=== PATIENT | female | born 1985 | race African-American/Black ===

== ENCOUNTER 2018-03-21 20:12 | Inpatient (IN) | payer SELFPAY ==
[2018-03-21] MEDS ORDERED: SODIUM CHLORIDE 0.9% FLUSH 10 ML FLUSH IV FLUSH PRN (20:30)
[2018-03-21] MEDS ORDERED: KETOROLAC TROMETHAMINE 30 MG/ML (IVP) VIAL IVP ONE (20:30)
[2018-03-21] MEDS ORDERED: SODIUM CHLOR 0.9% 1000 ML INJ 1,000 ML IV SCH (20:30)
[2018-03-21 20:33] VITALS: BP 192/86; PULSE 119; RESP 16; TEMP 98.9; O2SAT 97
--- NOTE | 2018-03-21 20:41 | PD ---
HPI Chief Complaint: Abdominal Pain Time Seen by Provider: 20:17 Travel History International Travel<30 days: No Contact w/Intl Traveler<30days: No Traveled to known affect area: No History of Present Illness HPI 32-year-old female with history of MS presents emergency department for evaluation of lower abdominal pain. This is acute onset 2 days ago. Patient states the pain is cramping, sharp in nature. She states that her urine has had a stronger odor. She believes she may have a UTI. The pain does radiate to her back. She has been nauseous without vomiting. She reports subjective fever and chills. She denies any vaginal discharge. States she is currently on her menstrual cycle.. She denies any chance of . She has no other symptoms to report at this time. Of note, states that she was brought here by people and does not live locally. She has allegedly been abandoned by them. She has been without her MS medication for 2 days. PFS Past Medical History Musculoskeletal: Yes (MS) ?: Unknown Past Surgical History Surgical History: No Previous Surgery Social History Alcohol Use: No Tobacco Use: No Substance Use: No Allergies-Medications (Allergen,Severity, Reaction): Coded Allergies: Penicillins (Verified Allergy, Unknown, 03/21/18) Reported Meds & Prescriptions Reported Meds & Active Scripts Active Reported Prednisone 2.5 Mg Tab 2.5 Mg PO DAILY Review of Systems Except as stated in HPI: all other systems reviewed are Neg Physical Exam Narrative GENERAL: Well-nourished female patient, poorly kempt, but in no acute distress. SKIN: Focused skin assessment warm/dry. HEAD: Atraumatic. Normocephalic. EYES: Pupils equal and round. No scleral icterus. No injection or drainage. ENT: No nasal bleeding or discharge. Mucous membranes pink and moist. NECK: Trachea midline. No JVD. CARDIOVASCULAR: Tachycardic rate and rhythm. No murmur appreciated. RESPIRATORY: No accessory muscle use. Clear to auscultation. Breath sounds equal bilaterally. GASTROINTESTINAL: Abdomen soft, nondistended. Lower abdominal tenderness to palpation. Mild guarding. No rebound tenderness.. Hepatic and splenic margins not palpable. Pelvic: Patient refuses pelvic examination. Tells me she is on her menstrual cycle. MUSCULOSKELETAL: No obvious deformities. No clubbing. No cyanosis. No edema. NEUROLOGICAL: Awake and alert. No obvious cranial nerve deficits. Motor grossly within normal limits. Normal speech. PSYCHIATRIC: Appropriate mood and affect; insight and judgment normal. Data Data Last Documented VS Vital Signs Date Time Temp Pulse Resp B/P (MAP) Pulse Ox O2 Delivery O2 Flow Rate FiO2 03/21/18 20:33 98.9 119 16 192/86 (121) 97 Orders Orders Complete Blood Count With Diff (03/21/18 20:30) Comprehensive Metabolic Panel (03/21/18 20:30) Lipase (03/21/18 20:30) Prothrombin Time / Inr (Pt) (03/21/18 20:30) Act Partial Throm Time (Ptt) (03/21/18 20:30) Urinalysis - C+S If Indicated (03/21/18 20:30) Ct Abd/Pel W Iv Contrast(Rout) (03/21/18 20:30) Iv Access Insert/Monitor (03/21/18 20:30) Ecg Monitoring (03/21/18 20:30) Oximetry (03/21/18 20:30) Sodium Chlor 0.9% 1000 Ml Inj (Ns 1000 M (03/21/18 20:30) Sodium Chloride 0.9% Flush (Ns Flush) (03/21/18 20:30) Ketorolac Inj (Toradol Inj) (03/21/18 20:30) Ed Urine Pregnancytest Poc (03/21/18 20:30) Sodium Chlor 0.9% 1000 Ml Inj (Ns 1000 M (03/21/18 21:45) Iohexol 350 Inj (Omnipaque 350 Inj) (03/21/18 21:49) ^ Straight Catheter (03/21/18 21:58) Ceftriaxone Inj (Rocephin Inj) (03/21/18 23:00) Azithromycin (Zithromax) (03/21/18 23:00) Morphine Inj (Morphine Inj) (03/21/18 23:00) Consult General Surgery (03/21/18 ) Consult Abelardo Nfs (03/21/18 ) Ct Abd/Pel W Iv Contrast(Rout) (03/21/18 ) Lactic Acid Sepsis Protocol (03/21/18 23:08) Blood Culture (03/21/18 23:08) Admit Order (Ed Use Only) (03/21/18 23:08) Ns (Bolus) Inj (03/21/18 23:15) Labs Laboratory Tests Test 03/21/18 20:45 White Blood Count 15.1 TH/MM3 Red Blood Count 4.93 MIL/MM3 Hemoglobin 14.8 GM/DL Hematocrit 43.8 % Mean Corpuscular Volume 88.9 FL Mean Corpuscular Hemoglobin 30.0 PG Mean Corpuscular Hemoglobin Concent 33.7 % Red Cell Distribution Width 13.9 % Platelet Count 337 TH/MM3 Mean Platelet Volume 8.9 FL Neutrophils (%) (Auto) 84.4 % Lymphocytes (%) (Auto) 8.1 % Monocytes (%) (Auto) 7.2 % Eosinophils (%) (Auto) 0.0 % Basophils (%) (Auto) 0.3 % Neutrophils # (Auto) 12.7 TH/MM3 Lymphocytes # (Auto) 1.2 TH/MM3 Monocytes # (Auto) 1.1 TH/MM3 Eosinophils # (Auto) 0.0 TH/MM3 Basophils # (Auto) 0.0 TH/MM3 CBC Comment DIFF FINAL Differential Comment Prothrombin Time 10.3 SEC Prothromb Time International Ratio 1.0 RATIO Activated Partial Thromboplast Time 32.9 SEC Blood Urea Nitrogen 6 MG/DL Creatinine 0.80 MG/DL Random Glucose 96 MG/DL Total Protein 9.2 GM/DL Albumin 3.5 GM/DL Calcium Level 9.2 MG/DL Alkaline Phosphatase 88 U/L Aspartate Amino Transf (AST/SGOT) 38 U/L Alanine Aminotransferase (ALT/SGPT) 24 U/L Total Bilirubin 1.2 MG/DL Sodium Level 134 MEQ/L Potassium Level 5.0 MEQ/L Chloride Level 99 MEQ/L Carbon Dioxide Level 26.0 MEQ/L Anion Gap 9 MEQ/L Estimat Glomerular Filtration Rate 101 ML/MIN Lipase 64 U/L [facility] Medical Decision Making Medical Screen Exam Complete: Yes Emergency Medical Condition: Yes Medical Record Reviewed: Yes Differential Diagnosis Cystitis versus vaginitis versus urethritis versus colitis versus diverticulitis versus PID Narrative Course 32-year-old female presents emergency department for evaluation of lower abdominal pain. Patient appears overall well. She is tachycardic here in the emergency department. She is given IV fluid. Lab work and CT imaging are ordered. Patient refuses pelvic examination. Laboratory Tests Test 03/21/18 20:45 White Blood Count 15.1 TH/MM3 Red Blood Count 4.93 MIL/MM3 Hemoglobin 14.8 GM/DL Hematocrit 43.8 % Mean Corpuscular Volume 88.9 FL Mean Corpuscular Hemoglobin 30.0 PG Mean Corpuscular Hemoglobin Concent 33.7 % Red Cell Distribution Width 13.9 % Platelet Count 337 TH/MM3 Mean Platelet Volume 8.9 FL Neutrophils (%) (Auto) 84.4 % Lymphocytes (%) (Auto) 8.1 % Monocytes (%) (Auto) 7.2 % Eosinophils (%) (Auto) 0.0 % Basophils (%) (Auto) 0.3 % Neutrophils # (Auto) 12.7 TH/MM3 Lymphocytes # (Auto) 1.2 TH/MM3 Monocytes # (Auto) 1.1 TH/MM3 Eosinophils # (Auto) 0.0 TH/MM3 Basophils # (Auto) 0.0 TH/MM3 CBC Comment DIFF FINAL Differential Comment Prothrombin Time 10.3 SEC Prothromb Time International Ratio 1.0 RATIO Activated Partial Thromboplast Time 32.9 SEC Blood Urea Nitrogen 6 MG/DL Creatinine 0.80 MG/DL Random Glucose 96 MG/DL Total Protein 9.2 GM/DL Albumin 3.5 GM/DL Calcium Level 9.2 MG/DL Alkaline Phosphatase 88 U/L Aspartate Amino Transf (AST/SGOT) 38 U/L Alanine Aminotransferase (ALT/SGPT) 24 U/L Total Bilirubin 1.2 MG/DL Sodium Level 134 MEQ/L Potassium Level 5.0 MEQ/L Chloride Level 99 MEQ/L Carbon Dioxide Level 26.0 MEQ/L Anion Gap 9 MEQ/L Estimat Glomerular Filtration Rate 101 ML/MIN Lipase 64 U/L Last Impressions Abdomen/Pelvis CT 03/21/182029 Signed Impressions: CONCLUSION: Complex fluid collection in the pelvis as described above. Differential diagnos tic possibilities include ruptured appendicitis as well as tubo-ovarian abscess . Please see above. I discussed the case with Dr. Felix Pulido, general surgeon telephone recorder. He requests admission to medicine with a consult to surgery. He also recommends percutaneous drain be placed for likely tubo-ovarian abscess. [id number] Donahue who requests I speak to gynecology. I spoke with Dr. Beltre, [employer] hospitalist on-call. She will come in and evaluate the patient in consult on the patient, however she feels that medical admission is in the patient's best interest due to history of MS. another call was placed to Dr. Donahue [phone] Donahue who states that she will be more than happy to consult on the patient if indeed they are needed for her MS, however she feels this is a more appropriate gynecology or surgery admission. I then spoke with Dr. Beltre. Patient will be admitted to her service.. She requests that I hold off on any further antibiotics at this time until she assesses the patient. she will be down in the emergency room shortly to do so. Diagnosis Primary Impression: Abdominal pain Qualified Codes: R10.30 - Lower abdominal pain, unspecified Additional Impression: Pelvic fluid collection Admitting Information Admitting Physician Requests: Admit Condition: Stable Kecia Tobin Mar 21, 2018 20:41
[2018-03-21] MEDS ORDERED: PRED2.5T PO (20:50)
[2018-03-21 20:59] LABS: AUTOMATED NEUTROPHIL # 12.7 TH/MM3 (1.8-7.7); BASOPHIL % 0.3 % (0.0-2.0); HEMATOCRIT 43.8 % (35.0-46.0); HEMOGLOBIN 14.8 GM/DL (11.6-15.3); LYMPH % 8.1 % (9.0-44.0); LYMPHOCYTE # 1.2 TH/MM3 (1.0-4.8); MEAN CELL VOLUME 88.9 FL (80.0-100.0); MEAN CORPUSCULAR HGB CONC 33.7 % (32.0-36.0); MEAN PLATELET VOLUME 8.9 FL (7.0-11.0); MONO % 7.2 % (0.0-8.0); MONOCYTE # 1.1 TH/MM3 (0-0.9); NEUT % 84.4 % (16.0-70.0); PLATELET COUNT 337 TH/MM3 (150-450); RED BLOOD COUNT 4.93 MIL/MM3 (4.00-5.30); RED CELL DISTRIBUTION WIDTH 13.9 % (11.6-17.2); WHITE BLOOD COUNT 15.1 TH/MM3 (4.0-11.0)
[2018-03-21 21:23] LABS: PROTHROMBIN TIME - PATIENT 10.3 SEC (9.8-11.6)
[2018-03-21 21:37] LABS: ALKALINE PHOSPHATASE 88 U/L (45-117); ALT (GPT) 24 U/L (10-53); TOTAL BILIRUBIN ADULT 1.2 MG/DL (0.2-1.0); TOTAL PROTEIN 9.2 GM/DL (6.4-8.2)
[2018-03-21] MEDS ORDERED: SODIUM CHLOR 0.9% 1000 ML INJ 1,000 ML IV ONE ×2 (21:45→23:15)
[2018-03-21] MEDS ORDERED: IOHEXOL 350 MG/ML 10 ML VIAL (for RAD DIAG) IVCONTRAST ONE (21:49)
[2018-03-21 21:58] LABS: ALBUMIN 3.5 GM/DL (3.4-5.0); AST (GOT) 38 U/L (15-37); BLOOD UREA NITROGEN 6 MG/DL (7-18); CALCIUM 9.2 MG/DL (8.5-10.1); CHLORIDE 99 MEQ/L (98-107); GLOMERULAR FILTRATION RATE 101 ML/MIN (>89); GLUCOSE,RANDOM 96 MG/DL (74-106); SODIUM (NA) 134 MEQ/L (136-145)
--- NOTE | 2018-03-21 22:37 | RADRPT ---
EXAM DATE: 03/21/2018 9:56 PM EDT AGE/SEX: 32 years / Female INDICATIONS: Abdomen pain. CLINICAL DATA: This is the patient's initial encounter. Patient reports that signs and symptoms have been present for 1 day and indicates a pain score of 5/10. MEDICAL/SURGICAL HISTORY: None. None. ORAL CONTRAST: No oral contrast ingested. RADIATION DOSE: 5.61 CTDI (mGy) COMPARISON: No prior exams available for comparison. TECHNIQUE: Multiple contiguous axial images were obtained through the abdomen and pelvis following b olus infusion of 90 ml Omnipaque 350 (iohexol) nonionic water-soluble contrast as a single exam dos e. No oral contrast ingested. Using automated exposure control and adjustment of the mA and/or kV ac cording to patient size, radiation dose was kept as low as reasonably achievable to obtain optimal di agnostic quality images. DICOM format image data is available electronically for review and comparis on. FINDINGS: Examination of the lung bases demonstrates no abnormality. No pleural fluid is identified. No pulmona ry nodules are present. The liver and spleen are normal in size and no focal defects are identified. There are multiple gallstones within the gallbladder without wall thickening or pericholecystic flui d the largest measuring 5 mm The pancreas demonstrates no evidence of mass and there is no dilatation of the pancreatic duct. The adrenal glands and kidneys appear normal bilaterally. No hydronephrosis or mass lesions are identified. In the pelvis there is a multilocular fluid collection on the right extending into the deep pelvis me asuring in aggregate 7.5 x 3.6 cm. The cecum does extend low into the pelvis though no appendix is id entified. The lack of oral contrast limits the evaluation of this examination and this could be consi dered to narrow the differential diagnosis of tubo-ovarian abscess versus appendicitis. The bladder a ppears normal. No wall thickening or intraluminal masses are identified. No abnormally enlarged lymph nodes are identified. CONCLUSION: Complex fluid collection in the pelvis as described above. Differential diagnostic possibilities incl ude ruptured appendicitis as well as tubo-ovarian abscess. Please see above. Electronically signed by: Jesse Ge MD 03/21/2018 10:36 PM EDT
[2018-03-21] MEDS ORDERED: cefTRIAXone 250 MG VIAL IM ONE (23:00)
[2018-03-21] MEDS ORDERED: AZITHROMYCIN 250 MG TAB PO ONE (23:00)
[2018-03-21] MEDS ORDERED: MORPHINE SULFATE 4 MG/ML INJ IV PUSH ONE (23:00)
[2018-03-21] MEDS ORDERED: DIATRIZOATE MEGLUM/DIATRIZOATE SOD 9 ML CUP PO ONE (23:30)
[2018-03-22] VITALS (8 sets, daily range): BP systolic 116–138; BP diastolic 61–87; PULSE 89–107; RESP 15–20; TEMP 98–100.4; O2SAT 96–100
[2018-03-22] MEDS ORDERED: ONDANSETRON ODT 4 MG TAB PO PRN (00:30)
[2018-03-22] MEDS ORDERED: ACETAMINOPHEN 325 MG TAB PO PRN (00:30)
[2018-03-22] MEDS ORDERED: SODIUM CHLORIDE 0.9% FLUSH 10 ML FLUSH IV FLUSH PRN (00:30)
--- NOTE | 2018-03-22 01:04 | HHI.HP ---
HPI Chief Complaint pelvic pain Date Seen: Mar 22, 2018 Time Seen: 00:30 Travel History International Travel<30 Days: No Contact w/Intl Traveler<30Days: No Known Affected Area: No History of Present Illness HPI 32 yo presents with LMP of 6 c/o of 2 day hx of pelvic pain and cramping that started with onset of her menses. pt states she has never had pain like this before. pain is worse with moving and walking. she has not taken pain meds. c/o pain with urination. +fever and chills. she hasn't taken her temperature. she is stranded here in [place] and is trying to get home to [place]. 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 SKIN: Warm and dry. HEAD: Normocephalic and atraumatic. EYES: No scleral icterus. No injection or drainage. ENT: No nasal drainage noted. Mucous membranes pink. Airway patent. NECK: Supple, trachea midline. No JVD. CARDIOVASCULAR: Regular rate and rhythm without murmurs, gallops, or rubs. RESPIRATORY: Breath sounds equal bilaterally. No accessory muscle use. BREASTS: Bilateral exam showed no masses , no retractions, no nipple discharge. ABDOMEN/GI: Abdomen soft, non-tender, bowel sounds present, no rebound, no guarding External Genitalia: intact and normal in appearance Cervix: +malodorous vaginal discharge + CMT EXTREMITIES: No cyanosis or edema. BACK: Nontender without obvious deformity. No CVA tenderness. NEUROLOGICAL: Awake and alert. Motor and sensory grossly within normal limits. Five out of 5 muscle strength in all muscle groups. Normal speech. Caprini VTE Risk Assessment Caprini VTE Risk Assessment: No/Low Risk (score <= 1) Caprini Risk Assessment Model Point Value = 1 Point Value = 2 Point Value = 3 Point Value = 5 Age 41-60 Minor surgery BMI > 25 kg/m2 Swollen legs Varicose veins or History of unexplained or recurrent spontaneous Oral contraceptives or hormone replacement Sepsis (< 1 month) Serious lung disease, including pneumonia (< 1 month) Abnormal pulmonary function Acute myocardial infarction Congestive heart failure (< 1 month) History of inflammatory bowel disease Medical patient at bed rest Age 61-74 Arthroscopic surgery Major open surgery (> 45 min) Laparoscopic surgery (> 45 min) Malignancy Confined to bed (> 72 hours) Immobilizing plaster cast Central venous access Age >= 75 History of VTE Family history of VTE Factor V Leiden Prothrombin [id number] Lupus anticoagulant Anticardiolipin antibodies Elevated serum homocysteine Heparin-induced thrombocytopenia Other congenital or acquired thrombophilia Stroke (< 1 month) Elective arthroplasty Hip, pelvis, or leg fracture Acute spinal cord injury (< 1 month) Prophylaxis Regimen Total Risk Factor Score Risk Level Prophylaxis Regimen 0-1 Low Early ambulation 2 Moderate Order ONE of the following: *Sequential Compression Device (SCD) *Heparin 5000 units SQ BID 3-4 Higher Order ONE of the following medications: *Heparin 5000 units SQ TID *Enoxaparin/Lovenox 40 mg SQ daily (WT < 150 kg, CrCl > 30 mL/min) *Enoxaparin/Lovenox 30 mg SQ daily (WT < 150 kg, CrCl > 10-29 mL/min) *Enoxaparin/Lovenox 30 mg SQ BID (WT < 150 kg, CrCl > 30 mL/min) AND/OR *Sequential Compression Device (SCD) 5 or more Highest Order ONE of the following medications: *Heparin 5000 units SQ TID (Preferred with Epidurals) *Enoxaparin/Lovenox 40 mg SQ daily (WT < 150 kg, CrCl > 30 mL/min) *Enoxaparin/Lovenox 30 mg SQ daily (WT < 150 kg, CrCl > 10-29 mL/min) *Enoxaparin/Lovenox 30 mg SQ BID (WT < 150 kg, CrCl > 30 mL/min) AND *Sequential Compression Device (SCD) Data Data Vital Signs Reviewed: Yes Orders Orders Complete Blood Count With Diff (03/21/18 20:30) Comprehensive Metabolic Panel (03/21/18 20:30) Lipase (03/21/18 20:30) Prothrombin Time / Inr (Pt) (03/21/18 20:30) Act Partial Throm Time (Ptt) (03/21/18 20:30) Urinalysis - C+S If Indicated (03/21/18 20:30) Ct Abd/Pel W Iv Contrast(Rout) (03/21/18 20:30) Iv Access Insert/Monitor (03/21/18 20:30) Ecg Monitoring (03/21/18 20:30) Oximetry (03/21/18 20:30) Sodium Chlor 0.9% 1000 Ml Inj (Ns 1000 M (03/21/18 20:30) Sodium Chloride 0.9% Flush (Ns Flush) (03/21/18 20:30) Ketorolac Inj (Toradol Inj) (03/21/18 20:30) Ed Urine Pregnancytest Poc (03/21/18 20:30) Sodium Chlor 0.9% 1000 Ml Inj (Ns 1000 M (03/21/18 21:45) Iohexol 350 Inj (Omnipaque 350 Inj) (03/21/18 21:49) ^ Straight Catheter (03/21/18 21:58) Ceftriaxone Inj (Rocephin Inj) (03/21/18 23:00) Azithromycin (Zithromax) (03/21/18 23:00) Morphine Inj (Morphine Inj) (03/21/18 23:00) Consult General Surgery (03/21/18 ) Consult Abelardo Nfs (03/21/18 ) Lactic Acid Sepsis Protocol (03/21/18 23:08) Blood Culture (03/21/18 23:08) Admit Order (Ed Use Only) (03/21/18 23:08) Sodium Chlor 0.9% 1000 Ml Inj (Ns 1000 M (03/21/18 23:15) Oral Contrast - Adult (03/21/18 23:26) Diatrizoate Sharmaine (Md Sandra Schmid) (03/21/18 23:30) Admit To Inpatient (03/22/18 ) Vital Signs (Adult) Q4H (03/22/18 00:19) Activity Oob Ad Sonia (03/22/18 ) Diet Regular Basic (03/22/18 Breakfast) Sodium Chlor 0.45% 1000 Ml Inj (1/2 Ns 1 (03/22/18 00:19) Sodium Chloride 0.9% Flush (Ns Flush) (03/22/18 00:30) Sodium Chloride 0.9% Flush (Ns Flush) (03/22/18 09:00) Doxycycline Inj (Vibramycin Inj) (03/22/18 03:00) Cefoxitin Inj (Mefoxin Inj) (03/22/18 02:30) Acetaminophen (Tylenol) (03/22/18 00:30) Ibuprofen (Motrin) (03/22/18 00:30) Ketorolac Inj (Toradol Inj) (03/22/18 00:30) Morphine Inj (Morphine Inj) (03/22/18 00:30) Ondansetron Odt (Zofran Odt) (03/22/18 00:30) Complete Blood Count With Diff (03/23/18 06:00) Wet Prep Profile (03/22/18 00:19) Gc And Chlamydia Pcr (03/22/18 00:19) Us Pelvis Comp Grinder Operator Automatic/Non-Preg (03/22/18 ) Vte Prophylaxis Not Indicated (03/22/18 00:19) Inpatient Certification (03/22/18 ) Case Management Consult (03/22/18 ) Complete Blood Count With Diff (03/22/18 06:00) Ct Abd/Pel W Iv Contrast(Rout) (03/22/18 ) Labs Last 24 hours Impressions Abdomen/Pelvis CT 03/21/18 2030 Signed Impressions: CONCLUSION: Complex fluid collection in the pelvis as described above. Differential diagnos tic possibilities include ruptured appendicitis as well as tubo-ovarian abscess . Please see above. Laboratory Tests Test 03/21/18 20:45 03/21/18 23:40 03/22/18 00:35 White Blood Count 15.1 Red Blood Count 4.93 Hemoglobin 14.8 Hematocrit 43.8 Mean Corpuscular Volume 88.9 Mean Corpuscular Hemoglobin 30.0 Mean Corpuscular Hemoglobin Concent 33.7 Red Cell Distribution Width 13.9 Platelet Count 337 Mean Platelet Volume 8.9 Neutrophils (%) (Auto) 84.4 Lymphocytes (%) (Auto) 8.1 Monocytes (%) (Auto) 7.2 Eosinophils (%) (Auto) 0.0 Basophils (%) (Auto) 0.3 Neutrophils # (Auto) 12.7 Lymphocytes # (Auto) 1.2 Monocytes # (Auto) 1.1 Eosinophils # (Auto) 0.0 Basophils # (Auto) 0.0 CBC Comment DIFF FINAL Differential Comment Prothrombin Time 10.3 Prothromb Time International Ratio 1.0 Activated Partial Thromboplast Time 32.9 Blood Urea Nitrogen 6 Creatinine 0.80 Random Glucose 96 Total Protein 9.2 Albumin 3.5 Calcium Level 9.2 Alkaline Phosphatase 88 Aspartate Amino Transf (AST/SGOT) 38 Alanine Aminotransferase (ALT/SGPT) 24 Total Bilirubin 1.2 Sodium Level 134 Potassium Level 5.0 Chloride Level 99 Carbon Dioxide Level 26.0 Anion Gap 9 Estimat Glomerular Filtration Rate 101 Lipase 64 Lactic Acid Level 1.1 Date/Time Source Procedure Growth Status 03/21/18 23:40 Blood Peripheral Aerobic Blood Culture Pending Received 03/21/18 23:40 Blood Peripheral Anaerobic Blood Culture Pending Received Assessment/Plan Problem List: (1) Tubo-ovarian abscess ICD Codes: N70.93 - Salpingitis and oophoritis, unspecified Status: Acute Plan: admit start antibiotics check pelvic u/s gc/ct collected (2) Abdominal pain ICD Codes: R10.9 - Unspecified abdominal pain Status: Acute Qualifiers: Qualified Codes: R10.30 - Lower abdominal pain, unspecified (3) Pelvic fluid collection ICD Codes: R18.8 - Other ascites Status: Acute Plan: consult interventional radiology for possible CT guided drainage in Behzad Webb MD Mar 22, 2018 01:04
[2018-03-22] MEDS ORDERED: ceFOXitin INJ 2,000 GM in SODIUM CHLORIDE 0.9% INJ 100 ML IV SCH ×2 (02:30→10:00)
[2018-03-22] MEDS ORDERED: DOXYCYCLINE INJ 100 MG in SODIUM CHLORIDE 0.9% INJ 100 ML IV SCH (03:00)
[2018-03-22] MEDS: SODIUM CHLOR 0.45% 1000 ML INJ 1,000 ML IV SCH ×3 (03:30→16:37)
[2018-03-22 04:46] LABS: BILIRUBIN, URINE NEG (NEG); BLOOD, URINE LARGE (NEG); GLUCOSE,URINE NEG (NEG); KETONE, URINE 20 mg/dL (NEG); NITRITE,URINE NEG (NEG); SQUAMOUS EPITHELIAL CELL URINE 1 /hpf (0-5); URINE COLOR YELLOW (YELLW/STRAW); URINE LEUKOCYTE ESTERASE NEG (NEG)
[2018-03-22] MEDS ORDERED: IOHEXOL 350 MG/ML 10 ML VIAL (for RAD DIAG) IVCONTRAST ONE (06:12)
--- NOTE | 2018-03-22 06:28 | RADRPT ---
EXAM DATE: 03/22/2018 6:16 AM EDT AGE/SEX: 32 years / Female INDICATIONS: Right sided abdominal pain; possible appendicitis. CLINICAL DATA: This is the patient's subsequent encounter. Patient reports that signs and symptoms h ave been present for 1 day and indicates a pain score of 5/10. MEDICAL/SURGICAL HISTORY: None. None. ORAL CONTRAST: Prescribed oral contrast ingested. RADIATION DOSE: 6.64 CTDI (mGy) [place] [facility] [place]AST, 03/21/2018. . TECHNIQUE: Multiple contiguous axial images were obtained through the abdomen and pelvis following b olus infusion of 50 ml Omnipaque 350 (iohexol) nonionic water-soluble contrast as a single exam dos e. Prescribed oral contrast ingested. Using automated exposure control and adjustment of the mA and/ or kV according to patient size, radiation dose was kept as low as reasonably achievable to obtain op timal diagnostic quality images. DICOM format image data is available electronically for review and comparison. FINDINGS: Lower Lungs: The visualized lower lungs are clear. Liver: The liver has a homogeneous density without space-occupying lesion. Calcified gallstones. Ther e is no dilation of the biliary tree. Spleen: Homogeneous density without enlargement. Pancreas: Unremarkable without mass or calcification. Kidneys: Normal in size and shape. No evidence of mass or hydronephrosis. Adrenal Glands: Unremarkable. Aorta: The aorta and proximal iliac vessels are grossly unremarkable without aneurysmal dilation. Bowel/Mesentery: The bowel loops are grossly unremarkable. The cecum and sigmoid colon have a normal configuration. Appendix is normal. Abdominal Wall: Intact. Retroperitoneum: No evidence of adenopathy in the retrocrural, para-aortic, or deep pelvic regions. Bladder: Contours are smooth. Reproductive Organs: Prominent cystic structure in the right adnexa measures 3.9 x 2.4 cm. More post eriorly adjacent to the rectum is a cystic structure measuring 3.7 x 3.4 cm. Several other loculated cystic structures are again seen. Inguinal: The inguinal region is unremarkable without evidence of adenopathy. Bony Structures: Unremarkable. CONCLUSION: 1. Loculated cystic structures in the right adnexa/right posterior pelvis possibly related to PID/TO A/hydrosalpinx. Pelvic sonogram recommended. 2. Appendix is normal. 3. Cholelithiasis. Electronically signed by: Mukund Mercer MD 03/22/2018 6:27 AM EDT
[2018-03-22] MEDS: SODIUM CHLORIDE 0.9% FLUSH 10 ML FLUSH IV FLUSH SCH ×2 (07:30→20:44)
[2018-03-22] MEDS: MORPHINE SULFATE 4 MG/ML INJ IV PUSH PRN ×4 (07:37→21:40)
--- NOTE | 2018-03-22 09:22 | RADRPT ---
EXAM DATE: 03/22/2018 9:03 AM EDT AGE/SEX: 32 years / Female INDICATIONS: Pelvic pain. CLINICAL DATA: This is the patient's initial encounter. Patient reports that signs and symptoms have been present for 3 days and indicates a pain score of 10/10. MEDICAL/SURGICAL HISTORY: . Multiple sclerosis. None. COMPARISON: [facility] – [place], [place] ABDOMEN & PELVIS W CONTRAST, 03/22/2018. . No external comparison. MEASUREMENTS: Uterus:__9.1 x 3.8 x 4.9 cm Endometrial Stripe:__3 mm Right Ovary:__ Ovary not identified Not visualized. Left Ovary:__ 3.6 x 1.9 x 2.4 cm FINDINGS: Uterus: The myometrium has homogeneous echotexture without mass. Endometrial Stripe: The endometrial stripe displays homogeneous echotexture. Right Ovary: Normal right ovary not seen. Tubular structure with debris in the right adnexa as seen on previous CT scans. Left Ovary: Ovary contains no mass. Follicles are present. Fluid: There is free fluid in the right adnexa Other: None. CONCLUSION: 1. Complex tubular cystic structure right adnexa with debris likely hydrosalpinx/pelvic inflammatory disease. 2. Left ovary and uterus unremarkable. Electronically signed by: Mukund Mercer MD 03/22/2018 9:21 AM EDT
--- NOTE | 2018-03-22 09:25 | PD.CONS ---
History of Present Illness Service OBGYN Consult Requested By Reason for Consult TOA Primary Care Physician No Primary Care Physician Diagnoses: (1) Tubo-ovarian abscess (2) Abdominal pain (3) Pelvic fluid collection History of Present Illness No acute events overnight. Patient reports that her pain is well controlled with pain medication. She denies fevers. She reports chills overnight. She reports that her abdomen is quill machine tender. Past Family Social History Allergies: Coded Allergies: Penicillins (Verified Allergy, Unknown, 03/21/18) Physical Exam Vital Signs Vital Signs Date Time Temp Pulse Resp B/P (MAP) Pulse Ox O2 Delivery O2 Flow Rate FiO2 03/22/18 08:00 98.0 101 18 120/71 (87) 97 03/22/18 07:42 17 03/22/18 07:31 98.1 102 18 125/68 (87) 97 Room Air 03/22/18 04:39 107 16 116/66 (83) 99 Room Air 03/22/18 00:32 96 18 117/61 (79) 96 Room Air 03/21/18 20:33 98.9 119 16 192/86 (121) 97 Physical Exam GENERAL: This is a well-nourished, well-developed patient, in no apparent distress. SKIN: No rashes, ecchymoses or lesions. Cool and dry. HEAD: Atraumatic. Normocephalic. No temporal or scalp tenderness. EYES: Pupils equal round and reactive. Extraocular motions intact. No scleral icterus. No injection or drainage. ENT: Nose without bleeding, purulent drainage or septal hematoma. Throat without erythema, tonsillar hypertrophy or exudate. Uvula midline. Airway patent. NECK: Trachea midline. No JVD or lymphadenopathy. Supple, nontender, no meningeal signs. CARDIOVASCULAR: Regular rate and rhythm without murmurs, gallops, or rubs. RESPIRATORY: Clear to auscultation. Breath sounds equal bilaterally. No wheezes , rales, or rhonchi. GASTROINTESTINAL: Abdomen soft, non-tender, nondistended. No hepato-splenomegaly , or palpable masses. No guarding. MUSCULOSKELETAL: Extremities without clubbing, cyanosis, or edema. No joint tenderness, effusion, or edema noted. No calf tenderness. Negative Homans sign bilaterally. NEUROLOGICAL: Awake and alert. Cranial nerves II through XII intact. Motor and sensory grossly within normal limits. Five out of 5 muscle strength in all muscle groups. Normal speech. Laboratory Laboratory Tests Test 03/21/18 20:45 03/21/18 23:40 03/22/18 00:35 03/22/18 04:00 White Blood Count 15.1 Red Blood Count 4.93 Hemoglobin 14.8 Hematocrit 43.8 Mean Corpuscular Volume 88.9 Mean Corpuscular Hemoglobin 30.0 Mean Corpuscular Hemoglobin Concent 33.7 Red Cell Distribution Width 13.9 Platelet Count 337 Mean Platelet Volume 8.9 Neutrophils (%) (Auto) 84.4 Lymphocytes (%) (Auto) 8.1 Monocytes (%) (Auto) 7.2 Eosinophils (%) (Auto) 0.0 Basophils (%) (Auto) 0.3 Neutrophils # (Auto) 12.7 Lymphocytes # (Auto) 1.2 Monocytes # (Auto) 1.1 Eosinophils # (Auto) 0.0 Basophils # (Auto) 0.0 CBC Comment DIFF FINAL Differential Comment Prothrombin Time 10.3 Prothromb Time International Ratio 1.0 Activated Partial Thromboplast Time 32.9 Blood Urea Nitrogen 6 Creatinine 0.80 Random Glucose 96 Total Protein 9.2 Albumin 3.5 Calcium Level 9.2 Alkaline Phosphatase 88 Aspartate Amino Transf (AST/SGOT) 38 Alanine Aminotransferase (ALT/SGPT) 24 Total Bilirubin 1.2 Sodium Level 134 Potassium Level 5.0 Chloride Level 99 Carbon Dioxide Level 26.0 Anion Gap 9 Estimat Glomerular Filtration Rate 101 Lipase 64 Human Chorionic Gonadotropin, Quant LESS THAN 1 Lactic Acid Level 1.1 Clue Cells (Wet Prep) PRESENT Vaginal Trichomonas (Wet Prep) NONE SEEN Vaginal Yeast (Wet Prep) NONE SEEN Chlamydia trachomatis DNA (PCR) NOT DETECTED Neisseria gonorrhoeae DNA (PCR) NOT DETECTED Urine Color YELLOW Urine Turbidity HAZY Urine pH 6.0 Urine Specific [place] 1.033 Urine Protein NEG Urine Glucose (UA) NEG Urine Ketones 20 Urine Occult Blood LARGE Urine Nitrite NEG Urine Bilirubin NEG Urine Urobilinogen LESS THAN 2 Urine Leukocyte Esterase NEG Urine RBC 6 Urine WBC 8 Urine Squamous Epithelial Cells 1 Microscopic Urinalysis Comment CULT NOT INDICATED Date/Time Source Procedure Growth Status 03/21/18 23:40 Blood Peripheral Aerobic Blood Culture Pending Received 03/21/18 23:40 Blood Peripheral Anaerobic Blood Culture Pending Received Result Diagram: 03/21/18204403/21/182044 Problem Qualifiers (1) Abdominal pain: Qualified Codes: R10.30 - Lower abdominal pain, unspecified Shadi Ramos MD R2 Mar 22, 2018 09:25
--- NOTE | 2018-03-22 09:31 | HHI.PR ---
Subjective Remarks No acute events overnight. Patient reports that her pain is well controlled with pain medication. She denies fevers. She reports chills overnight. She reports that her abdomen is slab off mill tender. (Shadi Ramos MD R2) Objective - Vital Signs Date Time Temp Pulse Resp B/P (MAP) Pulse Ox O2 Delivery O2 Flow Rate FiO2 03/22/18 08:00 98.0 101 18 120/71 (87) 97 03/22/18 07:31 Room Air (Shadi Ramos MD R2) Result Diagram: 03/21/18204403/21/182044 Objective Remarks GENERAL: Well-nourished, well-developed patient. SKIN: Warm and dry. HEAD: Normocephalic and atraumatic. EYES: No scleral icterus. No injection or drainage. ENT: No nasal drainage noted. Mucous membranes pink. Airway patent. NECK: Supple, trachea midline. No JVD. CARDIOVASCULAR: Regular rate and rhythm without murmurs, gallops, or rubs. RESPIRATORY: Breath sounds equal bilaterally. No accessory muscle use. BREASTS: Bilateral exam showed no masses , no retractions, no nipple discharge. ABDOMEN/GI: Abdomen soft, tender to palpation suprapubic region, bowel sounds present, no rebound, no guarding EXTREMITIES: No cyanosis or edema. BACK: Nontender without obvious deformity. NEUROLOGICAL: Awake and alert. Motor and sensory grossly within normal limits. Five out of 5 muscle strength in all muscle groups. Normal speech. (Shadi Ramos MD R2) A/P Problem List: (1) Tubo-ovarian abscess ICD Code: N70.93 - Salpingitis and oophoritis, unspecified Status: Acute (2) Abdominal pain ICD Code: R10.9 - Unspecified abdominal pain Status: Acute (3) Pelvic fluid collection ICD Code: R18.8 - Other ascites Status: Acute Assessment and Plan 1. likely TOA -start antibiotics to treat TOA. Plan to treat for 10-14 days. -Cefoxitin 2 g IV every 6 hours -Doxycycline 100 mg IV every 12 hours -check pelvic u/s -gc/ct negative -Cancelled general surgery consult -Interventional radiology consulted -Trend CBC: Shows leukocytosis with WBC of 15, left shift 2. Also found to have BV with clue cells on wet prep -Metronidazole 500 mg p.o. every 12 hours for 7 days -Can switch above antibiotics to Levaquin and Flagyl if desired 3. homelessness -Case management consulted for complex social situation (Shadi Ramos MD R2) Attending Attestation pt seen and examined with resident. agree with plan. (Behzad Beltre MD) Problem Qualifiers (1) Abdominal pain: Qualified Codes: R10.30 - Lower abdominal pain, unspecified Shadi Ramos MD R2 Mar 22, 2018 09:31 Behzad Beltre MD Mar 23, 2018 13:27
[2018-03-22] MEDS: metroNIDAZOLE 500 MG TAB PO SCH ×2 (10:25→20:43)
[2018-03-22] MEDS: KETOROLAC TROMETHAMINE 30 MG/ML (IVP) VIAL IV PUSH PRN (10:26)
[2018-03-22] MEDS: ceFOXitin INJ 2,000 GM in SODIUM CHLORIDE 0.9% INJ 100 ML IV SCH ×3 (10:42→20:44)
[2018-03-22 12:13] LABS: AUTOMATED NEUTROPHIL # 8.1 TH/MM3 (1.8-7.7); BASOPHIL % 0.4 % (0.0-2.0); EOSINOPHIL % 0.2 % (0.0-4.0); HEMOGLOBIN 10.3 GM/DL (11.6-15.3); LYMPH % 10.3 % (9.0-44.0); MEAN CELL VOLUME 89.3 FL (80.0-100.0); MEAN CORPUSCULAR HEMOGLOBIN 29.7 PG (27.0-34.0); MEAN CORPUSCULAR HGB CONC 33.3 % (32.0-36.0); MEAN PLATELET VOLUME 8.7 FL (7.0-11.0); MONO % 9.9 % (0.0-8.0); NEUT % 79.2 % (16.0-70.0); PLATELET COUNT 247 TH/MM3 (150-450); RED BLOOD COUNT 3.48 MIL/MM3 (4.00-5.30); RED CELL DISTRIBUTION WIDTH 13.5 % (11.6-17.2); WHITE BLOOD COUNT 10.2 TH/MM3 (4.0-11.0)
[2018-03-22] MEDS: DOXYCYCLINE INJ 100 MG in SODIUM CHLORIDE 0.9% INJ 100 ML IV SCH (16:37)
[2018-03-23] VITALS: BP 115/63; PULSE 95; RESP 18; TEMP 98.5; O2SAT 97
[2018-03-23] MEDS: DOXYCYCLINE INJ 100 MG in SODIUM CHLORIDE 0.9% INJ 100 ML IV SCH ×2 (03:53→15:00)
[2018-03-23] MEDS: ceFOXitin INJ 2,000 GM in SODIUM CHLORIDE 0.9% INJ 100 ML IV SCH ×3 (03:53→16:23)
[2018-03-23 04:00] VITALS: BP 117/94; PULSE 97; RESP 24; TEMP 98.6; O2SAT 100
[2018-03-23 05:16] LABS: AUTOMATED NEUTROPHIL # 6.3 TH/MM3 (1.8-7.7); BASOPHIL % 0.6 % (0.0-2.0); EOSINOPHIL % 0.6 % (0.0-4.0); HEMATOCRIT 33.7 % (35.0-46.0); HEMOGLOBIN 11.3 GM/DL (11.6-15.3); LYMPH % 8.6 % (9.0-44.0); LYMPHOCYTE # 0.7 TH/MM3 (1.0-4.8); MEAN CORPUSCULAR HEMOGLOBIN 29.8 PG (27.0-34.0); MEAN CORPUSCULAR HGB CONC 33.5 % (32.0-36.0); MEAN PLATELET VOLUME 8.1 FL (7.0-11.0); MONO % 11.7 % (0.0-8.0); MONOCYTE # 0.9 TH/MM3 (0-0.9); NEUT % 78.5 % (16.0-70.0); PLATELET COUNT 249 TH/MM3 (150-450); RED BLOOD COUNT 3.79 MIL/MM3 (4.00-5.30); RED CELL DISTRIBUTION WIDTH 13.6 % (11.6-17.2)
[2018-03-23] MEDS: MORPHINE SULFATE 4 MG/ML INJ IV PUSH PRN (05:19)
[2018-03-23] MEDS: SODIUM CHLOR 0.45% 1000 ML INJ 1,000 ML IV SCH ×2 (06:19→15:00)
[2018-03-23 08:00] VITALS: BP 131/81; PULSE 96; RESP 18; TEMP 98.1; O2SAT 100
[2018-03-23] MEDS: SODIUM CHLORIDE 0.9% FLUSH 10 ML FLUSH IV FLUSH SCH ×2 (08:20→22:27)
[2018-03-23] MEDS: metroNIDAZOLE 500 MG TAB PO SCH ×2 (08:21→22:27)
[2018-03-23] MEDS: KETOROLAC TROMETHAMINE 30 MG/ML (IVP) VIAL IV PUSH PRN ×3 (08:21→22:41)
--- NOTE | 2018-03-23 09:32 | HHI.PR ---
Subjective Remarks Pt had low fever to 100.4 overnight at 20:22. Otherwise, no acute events overnight. Pt reports feeling hot overnight and pain with eating but otherwise patient reports that her pain is well controlled with pain medication. She reports that her abdomen is long chain quiller tender. (Shadi Ramos MD R2) Remarks Patient seen and evaluated with resident under direct supervision, agree with assessment and plan. (Jean-Pierre Matt MD) Objective - Vital Signs Date Time Temp Pulse Resp B/P (MAP) Pulse Ox O2 Delivery O2 Flow Rate FiO2 03/23/18 08:00 98.1 96 18 131/81 (98) 100 03/22/18 07:31 Room Air (Shadi Ramos MD R2) Result Diagram: 03/23/185 03/21/182044 Other Results Last Impressions Pelvis Ultrasound 03/22/18 0000 Signed Impressions: CONCLUSION: 1. Complex tubular cystic structure right adnexa with debris likely hydrosalpi nx/pelvic inflammatory disease. 2. Left ovary and uterus unremarkable. Abdomen/Pelvis CT 03/22/18 0000 Signed Impressions: CONCLUSION: 1. Loculated cystic structures in the right adnexa/right posterior pelvis poss ibly related to PID/TOA/hydrosalpinx. Pelvic sonogram recommended. 2. Appendix is normal. 3. Cholelithiasis. Objective Remarks GENERAL: Well-nourished, well-developed patient. SKIN: Warm and dry. HEAD: Normocephalic and atraumatic. EYES: No scleral icterus. No injection or drainage. ENT: No nasal drainage noted. Mucous membranes pink. Airway patent. NECK: Supple, trachea midline. No JVD. CARDIOVASCULAR: Regular rate and rhythm without murmurs, gallops, or rubs. RESPIRATORY: Breath sounds equal bilaterally. No accessory muscle use. BREASTS: Bilateral exam showed no masses , no retractions, no nipple discharge. ABDOMEN/GI: Abdomen soft, tender to palpation suprapubic region, bowel sounds present, no rebound, no guarding EXTREMITIES: No cyanosis or edema. BACK: Nontender without obvious deformity. NEUROLOGICAL: Awake and alert. Motor and sensory grossly within normal limits. Five out of 5 muscle strength in all muscle groups. Normal speech. (Shadi Ramos MD R2) A/P Problem List: (1) Tubo-ovarian abscess ICD Code: N70.93 - Salpingitis and oophoritis, unspecified Status: Acute (2) Abdominal pain ICD Code: R10.9 - Unspecified abdominal pain Status: Acute (3) Pelvic fluid collection ICD Code: R18.8 - Other ascites Status: Acute Assessment and Plan 1. likely TOA -start antibiotics to treat TOA. Plan to treat for 10-14 days. -Cefoxitin 2 g IV every 6 hours -Doxycycline 100 mg IV every 12 hours -plan to treat with IV abx for 48 hours and then likely d/c tomorrow with Rx for oral abx -pelvic u/s - hydrosalpinx vs PID -gc/ct negative -Interventional radiology consulted to see if they can drain the fluid collection -Trend CBC: leukocytosis resolved 2. Also found to have BV with clue cells on wet prep -Metronidazole 500 mg p.o. every 12 hours for 7 days -Can switch above antibiotics to Levaquin and Flagyl if desired 3. homelessness -Case management consulted for complex social situation (Shadi Ramos MD R2) Problem Qualifiers (1) Abdominal pain: Qualified Codes: R10.30 - Lower abdominal pain, unspecified Shadi Ramos MD R2 Mar 23, 2018 09:32 Jean-Pierre Matt MD Mar 23, 2018 10:16
[2018-03-23 12:00] VITALS: BP 125/73; PULSE 93; RESP 19; TEMP 98.3; O2SAT 100
[2018-03-23 16:00] VITALS: BP 123/86; PULSE 96; RESP 20; TEMP 98.3; O2SAT 99
[2018-03-23 20:00] VITALS: BP 121/72; PULSE 96; RESP 17; TEMP 97.4; O2SAT 100
[2018-03-23] MEDS: ceFOXitin INJ 2 GM in SODIUM CHLORIDE 0.9% INJ 100 ML IV SCH (22:38)
[2018-03-24 00:07] VITALS: BP 128/72; PULSE 101; RESP 24; TEMP 98.2; O2SAT 99
[2018-03-24] MEDS: SODIUM CHLOR 0.45% 1000 ML INJ 1,000 ML IV SCH ×3 (02:44→22:19)
[2018-03-24] MEDS: DOXYCYCLINE INJ 100 MG in SODIUM CHLORIDE 0.9% INJ 100 ML IV SCH ×2 (03:07→15:48)
[2018-03-24 04:00] VITALS: BP 130/98; PULSE 81; RESP 21; TEMP 98.8; O2SAT 100
[2018-03-24] MEDS: ceFOXitin INJ 2 GM in SODIUM CHLORIDE 0.9% INJ 100 ML IV SCH ×4 (04:30→21:45)
[2018-03-24] MEDS: KETOROLAC TROMETHAMINE 30 MG/ML (IVP) VIAL IV PUSH PRN ×2 (04:35→19:45)
[2018-03-24 08:00] VITALS: BP 134/87; PULSE 86; RESP 20; TEMP 98.3; O2SAT 100
[2018-03-24] MEDS: SODIUM CHLORIDE 0.9% FLUSH 10 ML FLUSH IV FLUSH SCH ×2 (08:00→21:45)
[2018-03-24] MEDS: metroNIDAZOLE 500 MG TAB PO SCH ×2 (08:00→21:49)
--- NOTE | 2018-03-24 09:55 | HHI.PR ---
Subjective Remarks pain controlled, still feels warm but no fevers. denies nausea, vomiting, bleeding Objective Vital Signs Date Time Temp Pulse Resp B/P (MAP) Pulse Ox O2 Delivery O2 Flow Rate FiO2 03/24/18 08:00 98.3 86 20 134/87 (103) 100 03/24/18 04:00 98.8 81 21 130/98 (109) 100 03/24/18 00:07 98.2 101 24 128/72 (90) 99 03/23/18 20:00 97.4 96 17 121/72 (88) 100 03/23/18 16:01 18 03/23/18 16:00 98.3 96 20 123/86 (98) 99 03/23/18 12:00 98.3 93 19 125/73 (90) 100 I/O 03/23/18 03/23/18 03/23/18 03/24/18 03/24/18 03/24/18 07:00 15:00 23:00 07:00 15:00 23:00 Intake Total 960 ml 1940 ml Balance 960 ml 1940 ml Intake Oral 960 ml 640 ml IV Total 1300 ml # Voids 8 2 # Bowel Movements 0 # Sanitary Pads 1 Pads Result Diagram: 03/23/18 0455 03/21/182044 Objective Remarks GENERAL: Well-nourished, well-developed patient. CARDIOVASCULAR: Regular rate and rhythm without murmurs, gallops, or rubs. RESPIRATORY: Breath sounds equal bilaterally. No accessory muscle use. ABDOMEN/GI: Abdomen soft, non-tender. EXTREMITIES: No cyanosis or edema, non-tender, without signs of DVT. Assessment and Plan Problem List: (1) Tubo-ovarian abscess ICD Codes: N70.93 - Salpingitis and oophoritis, unspecified Status: Acute Plan: bcx pending cont abx for now change to po meds consider d/c home in am if afebrile (2) Abdominal pain ICD Codes: R10.9 - Unspecified abdominal pain Status: Acute Plan: improved Problem Qualifiers (1) Abdominal pain: Qualified Codes: R10.30 - Lower abdominal pain, unspecified Behzad Beltre MD Mar 24, 2018 09:55
[2018-03-24 12:00] VITALS: BP_SYST 123; BP_SYST 125; BP_DIAS 70; BP_DIAS 79; PULSE 87; PULSE 92; RESP 20; RESP 27; TEMP 98.2; TEMP 98.5; O2SAT 99
[2018-03-24 16:00] VITALS: BP 133/91; PULSE 82; RESP 14; TEMP 98.3; O2SAT 99
[2018-03-24 20:00] VITALS: BP 139/91; PULSE 88; RESP 20; TEMP 98; O2SAT 97
[2018-03-24] MEDS ORDERED: MAGNESIUM HYDROXIDE SUSP 30 ML CUP PO PRN (22:00)
[2018-03-24] MEDS ORDERED: DOCUSATE SODIUM 100 MG CAP PO SCH (22:00)
[2018-03-25] VITALS: BP 130/91; PULSE 78; RESP 22; TEMP 98.3; O2SAT 98
[2018-03-25] MEDS: oxyCODONE/ACETAMINOPHEN 5 MG/325 MG TAB PO PRN ×3 (00:16→18:38)
[2018-03-25] MEDS: DOXYCYCLINE INJ 100 MG in SODIUM CHLORIDE 0.9% INJ 100 ML IV SCH ×2 (03:15→15:16)
[2018-03-25 04:00] VITALS: BP 121/69; PULSE 80; RESP 20; TEMP 98; O2SAT 98
[2018-03-25] MEDS: ceFOXitin INJ 2 GM in SODIUM CHLORIDE 0.9% INJ 100 ML IV SCH ×3 (05:12→16:54)
[2018-03-25] MEDS: KETOROLAC TROMETHAMINE 30 MG/ML (IVP) VIAL IV PUSH PRN ×2 (05:13→14:38)
[2018-03-25] MEDS: SODIUM CHLOR 0.45% 1000 ML INJ 1,000 ML IV SCH ×2 (05:13→18:38)
[2018-03-25 08:00] VITALS: BP 126/79; PULSE 76; RESP 14; TEMP 98.1; O2SAT 100
[2018-03-25] MEDS: SODIUM CHLORIDE 0.9% FLUSH 10 ML FLUSH IV FLUSH SCH ×2 (09:00→21:12)
[2018-03-25] MEDS: DOCUSATE SODIUM 100 MG CAP PO SCH ×2 (09:01→21:12)
[2018-03-25] MEDS: metroNIDAZOLE 500 MG TAB PO SCH ×2 (09:01→21:12)
--- NOTE | 2018-03-25 09:21 | HHI.FPPN ---
Subjective Remarks No acute events overnight. Patient states that her abdominal pain is still present but is improved. No further fever or chills. Abdominal pain is worse with laughing, coughing and straining with bowel movements. She is aware that stool softeners would be very helpful in the setting of her pain medications. Objective Vitals Vital Signs Date Time Temp Pulse Resp B/P (MAP) Pulse Ox O2 Delivery O2 Flow Rate FiO2 03/25/18 06:13 19 03/25/18 04:00 98.0 80 20 121/69 (86) 98 03/25/18 01:16 19 03/25/18 00:00 98.3 78 22 130/91 (104) 98 03/24/18 20:00 98.0 88 20 139/91 (107) 97 03/24/18 16:00 98.3 82 14 133/91 (105) 99 03/24/18 12:00 98.2 87 20 125/79 (94) 99 I/O 03/24/18 03/24/18 03/24/18 03/25/18 03/25/18 03/25/18 07:00 15:00 23:00 07:00 15:00 23:00 Intake Total 1940 ml 1500 ml 720 ml Balance 1940 ml 1500 ml 720 ml Intake Oral 640 ml 1500 ml 720 ml IV Total 1300 ml # Voids 2 6 4 # Bowel Movements 2 Result Diagram: 03/23/18 0455 03/21/182044 Objective Remarks GENERAL: Well-nourished, well-developed patient. CARDIOVASCULAR: Regular rate and rhythm without murmurs, gallops, or rubs. RESPIRATORY: Breath sounds equal bilaterally. No accessory muscle use. ABDOMEN/GI: Abdomen soft, nondistended. Tender to palpation in the bilateral lower quadrants. No rebound tenderness EXTREMITIES: No cyanosis or edema, non-tender, without signs of DVT. A/P Assessment and Plan 32-year-old that presented to the ED with abdominal pain.. Admission blood cultures growing Acinetobacter. Sensitivities showing bacteria sensitive aside from Bactrim to which it is resistant. CT abdomen pelvis on admission showed complex fluid collection in the pelvis, loculated cystic structures in the right adnexa/right posterior pelvis. Pelvic ultrasound showed complex tubular cystic structure right adnexa with debris likely hydrosalpinx versus PID. Also found to have BV with clue cells on wet prep 1. likely PID -IV antibiotics on admission: -Cefoxitin 2 g IV every 6 hours -Doxycycline 100 mg IV every 12 hours -pelvic u/s - hydrosalpinx vs PID -gc/ct negative -Initially considered IR consult for fluid drain. Patient has symptomatically improved with no further fevers or leukocytosis. No need for drainage at this time. -Initially had a leukocytosis with WBC of 15.1 on admission. Has now resolved. -We will plan to DC on Levaquin after 5 days of IV antibiotics to complete 10- 14 day course 2. Positive blood cultures -Blood cultures from admission grew Acinetobacter in 1 out of 4 vials -Has been afebrile since 03/22 -Sensitivities showing that it is sensitive to everything but Bactrim -We will plan to DC on the Levaquin, p.o. Flagyl after 5 days of IV antibiotics 2. Also found to have BV with clue cells on wet prep -Metronidazole 500 mg p.o. every 12 hours for 7 days 3. homelessness -Case management consulted for complex social situation Discharge Planning Likely DC tomorrow Problem List: (1) PID (acute pelvic inflammatory disease) ICD Codes: N73.0 - Acute parametritis and pelvic cellulitis (2) BV (bacterial vaginosis) ICD Codes: N76.0 - Acute vaginitis; B96.89 - Other specified bacterial agents as the cause of diseases classified elsewhere Franklin Mahajan MD R1 Mar 25, 2018 09:21
[2018-03-25 12:00] VITALS: BP 119/65; PULSE 99; RESP 21; TEMP 97.9; O2SAT 100
[2018-03-25 16:00] VITALS: BP 112/75; PULSE 88; RESP 20; TEMP 97.8; O2SAT 100
[2018-03-25 20:00] VITALS: BP 128/81; PULSE 81; RESP 18; TEMP 98.3; O2SAT 100
[2018-03-26] VITALS: BP 131/77; PULSE 88; RESP 18; TEMP 98.1; O2SAT 99
[2018-03-26] MEDS: oxyCODONE/ACETAMINOPHEN 5 MG/325 MG TAB PO PRN ×3 (01:56→17:00)
[2018-03-26] MEDS: SODIUM CHLOR 0.45% 1000 ML INJ 1,000 ML IV SCH ×2 (01:58→12:33)
[2018-03-26 04:00] VITALS: BP 130/65; PULSE 85; RESP 18; TEMP 98.1; O2SAT 99
[2018-03-26] MEDS: IBUPROFEN 600 MG TAB PO PRN ×2 (05:53→22:42)
[2018-03-26] MEDS ORDERED: METR-1 PO (07:16)
[2018-03-26] MEDS ORDERED: OXYC1TAB63 PO (07:16)
[2018-03-26] MEDS ORDERED: IBUP-232 PO (07:16)
[2018-03-26] MEDS ORDERED: LEVA500T33 PO (07:16)
--- NOTE | 2018-03-26 07:17 | HHI.DCPOC ---
Discharge Care Plan Diagnosis: (1) Tubo-ovarian abscess (2) Abdominal pain Your Health Problems Are: Abdominal pain Report Symptoms to Your Doctor -Temperature above 100.5 degrees -Redness, of incision or excessive or foul smelling drainage -Unusual pain or calf pain -Increased vaginal bleeding -Painful or difficulty urinating -Feelings of extreme sadness or anxiety after 2 weeks Goals to Promote Your Health * To prevent worsening of your condition and complications * To maintain your health at the optimal level Directions to Meet Your Goals Take your medications as prescribed Follow your dietary instruction Follow activity as directed Ensure plenty of rest for recovery Drink fluids for hydration Keep your appointments as scheduled Take your immunizations and boosters as scheduled If your symptoms worsen call your PCP, if no PCP go to Urgent Care Center or Emergency Room Smoking is Dangerous to Your Health. Avoid second hand smoke Call the 24-hour crisis hotline for domestic abuse at Behzad Beltre MD Mar 26, 2018 07:17
--- NOTE | 2018-03-26 07:22 | HHI.DS ---
Discharge Summary Admission Date Mar 21, 2018 at 23:14 Discharge Date: Mar 26, 2018 Admitting Diagnosis Sepsis; abd pain; TOA (1) Tubo-ovarian abscess ICD Codes: N70.93 - Salpingitis and oophoritis, unspecified Status: Acute (2) Abdominal pain ICD Codes: R10.9 - Unspecified abdominal pain Status: Acute (3) BV (bacterial vaginosis) Diagnosis: Secondary ICD Codes: N76.0 - Acute vaginitis; B96.89 - Other specified bacterial agents as the cause of diseases classified elsewhere CBC/BMP: 03/23/18 0455 PE at Discharge GENERAL: Well-nourished, well-developed patient. CARDIOVASCULAR: Regular rate and rhythm without murmurs, gallops, or rubs. RESPIRATORY: Breath sounds equal bilaterally. No accessory muscle use. ABDOMEN/GI: Abdomen soft, non-tender. EXTREMITIES: No cyanosis or edema, non-tender, without signs of DVT. Hospital Course pt was admitted with severe pain and right adnexal mass. GC/CT cultures were negative but pt had +CMT and adnexal pain. CT scan and U/S confirmed likely TOA. pt had + blood cultures and was treated with IV ABX for 5 days. by day 5 pt was afebrile and her pain was improved with oral meds. Pt Condition on Discharge: Stable Discharge Disposition: Discharge Home Discharge Instructions DIET: Follow Instructions for: As Tolerated, No Restrictions Activities you can perform: Regular-No Restrictions Behzad Beltre MD Mar 26, 2018 07:22
[2018-03-26 08:00] VITALS: BP 125/72; PULSE 74; RESP 12; TEMP 98.4; O2SAT 100
[2018-03-26] MEDS ORDERED: LEVOFLOXACIN 500 MG TAB PO SCH (09:00)
[2018-03-26] MEDS: SODIUM CHLORIDE 0.9% FLUSH 10 ML FLUSH IV FLUSH SCH ×2 (09:00→21:00)
[2018-03-26] MEDS: DOCUSATE SODIUM 100 MG CAP PO SCH ×2 (09:02→22:41)
[2018-03-26] MEDS: metroNIDAZOLE 500 MG TAB PO SCH ×2 (09:02→22:41)
[2018-03-26 12:00] VITALS: BP 135/89; PULSE 69; RESP 14; TEMP 98; O2SAT 99
[2018-03-26 16:00] VITALS: BP 137/93; PULSE 80; RESP 27; TEMP 98.2; O2SAT 100
[2018-03-26 20:00] VITALS: BP_SYST 130; BP_SYST 171; BP_DIAS 75; BP_DIAS 78; PULSE 44; PULSE 82; RESP 16; RESP 18; TEMP 97.7; TEMP 98.1; O2SAT 100; O2SAT 99
[2018-03-27] VITALS: BP 139/92; PULSE 82; RESP 18; TEMP 98.6; O2SAT 100
[2018-03-27] MEDS: SODIUM CHLOR 0.45% 1000 ML INJ 1,000 ML IV SCH (00:19)
[2018-03-27] MEDS: oxyCODONE/ACETAMINOPHEN 5 MG/325 MG TAB PO PRN (01:27)
[2018-03-27 04:00] VITALS: BP 121/67; PULSE 70; RESP 18; TEMP 98.2; O2SAT 100
[2018-03-27] MEDS: IBUPROFEN 600 MG TAB PO PRN (05:30)
== END 2018-03-27 05:42 | disposition home or self-care (01) | DRG 758 ==
LOC: NEPC 20:12 → NEDA 23:14 → NEDH 03-22 07:24 → N03B 03-22 09:58
PROVIDERS: ADMIT Obstetrics & Gynecology; ATTEND Obstetrics & Gynecology
DX: N70.03 Acute salpingitis and oophoritis (principal); N73.0 Acute parametritis and pelvic cellulitis; R18.8 Other ascites; R78.81 Bacteremia; G35 Multiple sclerosis; Z59.0 Homelessness; N76.0 Acute vaginitis
CPT/HCPCS: 74177; 76856; 80053; 81001; 83605; 83690; 84702; 84703; 85025; 85610; 85730; 87040; 87186; 87205; 87210; 87491; 87591; 96361; 96374; J0694; J1885; J2270; J7030; Q9963; Q9967